=== PATIENT | male | born 1955 | race African-American/Black ===

== ENCOUNTER 2018-07-09 18:01 | Emergency (ER) | payer OTHER ==
[2018-07-09 18:24] VITALS: BP 00/00; PULSE 0; BMI 38.0
--- NOTE | 2018-07-09 18:24 | PDOC ---
History of Present Illness - General Chief Complaint: Cardiac Arrest Stated Complaint: CARDIAC ARREST Time Seen by Provider: 07/09/18 18:22 - History of Present Illness Initial Comments: 07/09/18 18:33 62 years old known past medical history of asthma seizure disorder last seen normal at approximately 4:40 PM after shopping. Patient returned home went to his bedroom was found at approximately 450 face down in his bed. rolled patient over noted some blood around his mouth and that he had urinated himself assumed that he had had a seizure but was unresponsive called EMS. Fire department arrived approximately 5 minutes later CPR started patient was asystolic. EMS arrived patient remained asystolic despite high-quality CPR patient was coded for the next 50 minutes intubated in the field during that time dextrose calcium gluconate sodium bicarbonate and 8 rounds of epinephrine were given but at no time was there ROSC. Patient arrived to the emergency department at approximately 5:55 PM. Asystolic. Tube placement confirmed and adjusted withdrawn 1 cm with bilateral breath sounds and direct visualization an additional 2 rounds of epinephrine were given Past History - Past Medical History Allergies/Adverse Reactions: Allergies Allergy/AdvReac Type Severity Reaction Status Date / Time No Allergy Information Allergy Verified 07/09/18 18:24 Available *Physical Exam - Physical Exam Comments: 07/09/18 18:39 Vitals: Triage Vital signs reviewed General Appearance: Intubated, CPR in progress Head: Atraumatic, Eyes: Fixed dilated left greater than right Throat: ET tube in place Cardiac: Asystolic Lungs: Intubated/bilateral breath sounds Skin: Warm and dry, no rashes or lesions Neuro: Unresponsive HEENT: positive: Other Medical Decision Making - Medical Decision Making 07/09/18 18:37 Patient coded for an additional 10 minutes with high-quality CPR at 6:10 PM with family in room After a total of greater than 60 minutes CPR with no spontaneous return of vital signs patient pronounced at 6:10 PM Condolences were offered to all family members who were present Case discussed with [employer] [place] release number [phone] Family did not know PCP name. certificate completed by or 07/09/18 23:06 *DC/Admit/Observation/Transfer Diagnosis at time of Disposition: Cardiac arrest - Discharge Dispostion Disposition: Decision to Admit order: No - Referrals - Patient Instructions - Post Discharge Activity
== END 2018-07-09 22:31 | disposition expired ==
LOC: JER 18:01
PROC: 5A12012 Performance of Cardiac Output, Single, Manual (ICD-10-PCS; principal; 2018-07-09)
DX: I46.9 Cardiac arrest, cause unspecified (principal); G40.909 Epilepsy, unspecified, not intractable, without status epilepticus; J45.909 Unspecified asthma, uncomplicated
CPT/HCPCS: 82962; 92950; 99283-25